=== PATIENT | male | born 1975 | race Caucasian/White ===

== ENCOUNTER → 2020-07-10 11:00 | Outpatient (BNVA) | payer OTHER, SELFPAY | PROVIDERS: Visit Provider Nurse Practitioner Family | DX: Z11.59 Encounter for screening for other viral diseases (principal) | CPT/HCPCS: 87426; 87635 ==

== ENCOUNTER 2020-10-14 21:40 | Emergency (ER) | payer OTHER, SELFPAY ==
[2020-10-14 21:56] VITALS: BP 148/93; PULSE 84; RESP 16; TEMP 36.5; O2SAT 97; BMI 27.3
--- NOTE | 2020-10-14 23:57 | ED_ITS ---
HPI - Headache General: Chief Complaint: Headache Stated Complaint: migraine Time Seen by Provider: 10/14/20 23:41 History of Present Illness: HPI Narrative: Patient is a 44-year-old male comes to the ED with a migraine. Patient says he has a past medical history of migraines and usually takes sumatriptan, but has run out of his sumatriptan and was unable to take it early in start of this migraine. He says the migraine started last Wednesday, October 09. He says it is just like his previous migraines. Said he is taken some Advil at home and his last dose was 800 mg at 10 AM this morning. He has associated nausea and photophobia with his migraine. His headache is located in forehead and also radiates to the back of his head. He rates his migraine currently a 7 out of 10. Denies any neurological symptoms such as numbness tingling to face or extremities, weakness to face or extremities or vision changes. Patient did say that he is new to [place] and would like to get referral to a primary care doctor. Associated symptoms: Reports nausea and photophobia; Deny chest pain, fever(s), rash or vomiting Review of Systems Const: Denies: fever(s), chills or fatigue Eyes: Reports: photophobia; Denies: change in vision or eye discomfort ENMT: Denies: throat pain, odynophagia, nasal discharge or nasal congestion Card: Denies: chest pain, palpitations, edema, swelling of feet/ankles, dyspnea on exertion or orthopnea Resp: Denies: dyspnea, productive cough or non-productive cough GI: Reports: nausea; Denies: abdominal pain, vomiting, diarrhea, constipation or hematochezia : Denies: flank pain, difficulty urinating, dysuria or hematuria Musc: Denies: neck pain, back pain or extremity swelling Skin/Breast: Denies: rash or new lesions Neuro: Reports: headache(s); Denies: numbness in extremities or weakness in extremities Physical Exam Const: COMMON NORMALS: no acute distress, patient oriented x3, healthy appearing and alert GENERAL APPEARANCE: cooperative and comfortable HENMT: COMMON NORMALS: normocephalic HEAD & SCALP: normocephalic MOUTH: Normal oral and palatal mucosa present THROAT: posterior oropharynx normal and uvula midline Eye: COMMON NORMALS: Equal, round and reactive pupils present, EOMs intact bilaterally and conjunctivae normal CONJUNCTIVA: Yes conjunctivae normal PUPIL: Yes Equal, round and reactive pupils present DIRECT OPHTHALMOSCOPY: Yes photophobia Neck/C-Spine: COMMON NORMALS: supple GENERAL: Yes normal visual inspection Resp: COMMON NORMALS: normal respiratory effort, No retractions, No use of accessory muscles and clear to auscultation bilaterally AUSCULTATION: clear to auscultation bilaterally Cardio: COMMON NORMALS: regular rate, regular rhythm, S1 normal heart sound present, S2 normal heart sound present, No gallops present (Cardio), No clicks present (Cardio), No murmurs present (Cardio) and Peripheral pulses 2+ throughout RATE: regular rate RHYTHM: regular rhythm HEART SOUNDS: S1 normal heart sound present and S2 normal heart sound present PERIPHERAL PULSES: Peripheral pulses 2+ throughout GI: COMMON NORMALS: Normal to inspection, nondistended, normoactive bowel sounds present, Soft to palpation, non-tender and no masses PALPATION: Yes Soft to palpation : COMMON NORMALS: Yes no CVA tenderness BLADDER/KIDNEY EXAM: Yes no CVA tenderness Back/Pelvis: COMMON NORMALS: no CVA tenderness Extremity: COMMON NORMALS: normal to inspection Neuro: COMMON NORMALS: patient oriented x3, CN's II-XII intact bilaterally, moves all extremities and no focal motor deficits SENSORIUM/ORIENTATION: Yes alert COORDINATION/BALANCE: [id number] test normal SPEECH: speech normal MOTOR EXAM: 5/5 motor strength present throughout COORDINATION: [id number] test normal Skin: GENERAL SKIN EXAM: dry skin Course Reevaluation(s): Reevaluation #1: Went in to reevaluate patient after he received migraine medications. Patient says his migraine is improved greatly and he is ready to go home and rest. Time: 01:04 Vital Signs: Vital signs: Vital Signs Temperature 97.7 F 10/14/20 21:56 Pulse Rate 84 10/14/20 21:56 Respiratory Rate 16 10/14/20 21:56 Blood Pressure 148/93 10/14/20 21:56 Pulse Oximetry 97 10/14/20 21:56 MDM - Headache MDM Narrative: Medical decision making narrative: Patient is a 44-year-old male comes to the ED with a migraine. He says that this migraine is similar to previous migraines and he ran out of his sumatriptan prescription. Patient is new to [place] would like to get established with a primary care physician and I told him I would place a referral with case management form. Patient appears in no acute distress or pain is neuro exam is normal. He endorses having photophobia and nausea. Patient was given IV fluids, Toradol, Reglan, Benadryl and Decadron while here in the ED and his migraine greatly improved. I placed order with case management for patient to be referred to PCP. Patient was diagnosed with migraine and discharged home with a prescription for sumatriptan. Return to ED precautions given. Told patient case management will be contacting you in the next several days to set up an appoint with PCP. Patient understood agree with plan. Discharge Plan Discharge Patient Disposition: Home Clinical Impression: Migraine Qualifiers: Migraine type: without aura Status migrainosus presence: without status migrainosus Intractability: not intractable Qualified Code(s): G43.009 - Migraine without aura, not intractable, without status migrainosus Condition: Stable Prescriptions: New sumatriptan succinate 100 mg tablet See Rx Instructions .ROUTE .COMPLEX Qty: 10 RF: 0 No Action No Known Home Medications RF: 0 Discharge Orders: Discharge ED (Routine); Ordered 10/15/20 Ordered By: Romain Long Discharge Diet: Regular Discharge Activity: Resume usual activity Patient Instructions: Migraine Headache (ED) Activity Restrictions/Additional Instructions: Follow-up with medical provider as directed. Case management will be contacting you in the next several days to set up an appointment with primary care physician. Sending you home with a prescription for some sumatriptan for you to use for any reoccurring migraines. Take medications as prescribed. Return to the ER or your medical provider if condition worsens. Please read and understand discharge instructions. If any questions, please ask. Coding Level of Care Code ED Bowling Ball Grader And Marker for Micaela Fwd Exam Comprehensive
[2020-10-15] MEDS: ketorolac 30 mg/mL INJ IVP (00:21)
[2020-10-15] MEDS: metoclopramide 5 mg/mL SDV 2 mL 10 MG IVP (00:21)
[2020-10-15] MEDS: diphenhydrAMINE 50 mg/mL SDV 1mL 25 MG IVP (00:22)
[2020-10-15] MEDS: dexamethasone 4 mg/mL INJ 10 MG IVP (00:22)
[2020-10-15] MEDS: sodium chloride 0.9% 500 ML 999 ML IV (00:23)
[2020-10-15 01:13] VITALS: PULSE 78; RESP 16; O2SAT 98
--- NOTE | 2020-10-15 13:50 | DCPLANNER ---
commercial development manager had message to speak with patient about getting established with a primary care physician. commercial development manager spoke with patient he stated that he did want help in getting established with a primary care physician. commercial development manager called [facility], spoke with Maryse, gave clinic patients information. A follow up appointment was scheduled for , October 24, 2020 at 10:[address] Gomez. commercial development manager called patient and gave patient the appointment information.
--- NOTE | 2020-11-29 08:15 | DCPLANNER ---
Patient had a follow up appointment scheduled for 10.24.20 with [facility] to establish care with Dr. Gomez - patient did attend appointment.
== END 2020-10-15 01:14 | disposition home or self-care (01) ==
PROVIDERS: Emergency Provider Physician Assistant
DX: G43.009 Migraine without aura, not intractable, without status migrainosus (principal)
CPT/HCPCS: 96374; 96375; 99283; J1100; J1200; J1885; J2765; J7040

== ENCOUNTER 2020-11-08 17:10 | Emergency (ER) | payer OTHER, SELFPAY ==
[2020-11-08 17:12] VITALS: BP 138/89; PULSE 77; RESP 18; TEMP 36.4; O2SAT 97; BMI 28.0
[2020-11-08 17:19] VITALS: PULSE 78; O2SAT 96
--- NOTE | 2020-11-08 17:19 | XRR_ITS ---
PROCEDURE INFORMATION: Exam: XR Right Hand Exam date and time: 11/08/2020 5:38 PM Age: 44 years old Clinical indication: Injury or trauma; Other: Injury - fourth digit; Swelling (edema); Injury date: 11/08/2020; Patient HX: Pain - right hand - 4th digit; Additional info: Pain index finger TECHNIQUE: Imaging protocol: XR Right hand. Views: 3 or more views. COMPARISON: No relevant prior studies available. FINDINGS: Nondisplaced oblique fracture of the 4th distal phalanx is noted. No joint dislocation. Mild soft tissue swelling is seen at the lateral aspect of the 3rd digit PIP joint. XR/XR hand RT min 3V* [id number] IMPRESSION: Nondisplaced 4th distal phalanx fracture.
--- NOTE | 2020-11-08 17:36 | ED_ITS ---
HPI - Extremity Problem General: Chief complaint: Extremity Injury, Upper Stated complaint: R 3RD FINGER INJURY Time Seen by Provider: 11/08/20 17:19 History of Present Illness: HPI Narrative: Patient was climbing to his truck and grabbed the handlebar inside and pulled his right ring finger now has pain at the tip. Complaint: extremity pain Onset (ago): hour(s) Pain Consistency: intermittent Location: right and upper extremity Severity scale (1-10): 2 Quality: stabbing (When squeezed) Radiation: none Relieving factors: immobilization Exacerbating factors: other (Squeezing the tip) Associated symptoms: Reports no associated symptoms; Deny fever(s) Review of Systems Const: Denies: fever(s) or chills Musc: Reports: extremity pain (Right ring finger tip and joint) Psych: Denies: anxiety PFSH ED PFSH: Medical History (Updated 10/29/20 @ 07:34 by Carlita Gomez DO) Eczema Elevated blood pressure reading without diagnosis of hypertension GERD (gastroesophageal reflux disease) Hemochromatosis Hemorrhoids IBS (irritable bowel syndrome) Lyme disease Migraine headache Surgical History (Updated 10/25/20 @ 09:08 by Carlita Gomez DO) History of appendectomy History of intestinal surgery Family History Mother Cancer ovarian Grandmother Cancer colon Grandfather Cancer bone Father Cancer lung Other Tremor Social History Smoking and tobacco status: current every day smoker cigarettes Packs smoked per day: 0.5 Alcohol intake: never Physical Exam Const: COMMON NORMALS: no acute distress Extremity: RIGHT UPPER EXTREMITY: Yes hand & digits (Right index finger with no swelling redness or erythema tender DIP) Right hand and digits: Yes ROM exam (Range of motion is good) Psych: COMMON NORMALS: mental status grossly normal Course Vital Signs: Vital signs: Vital Signs Temperature 97.5 F L 11/08/20 17:12 Pulse Rate 78 11/08/20 17:19 Respiratory Rate 18 11/08/20 17:12 Blood Pressure 138/89 11/08/20 17:12 Pulse Oximetry 96 11/08/20 17:19 Discharge Plan Discharge Prescriptions: No Action pantoprazole 40 mg tablet,delayed release (DR/EC) 40 mg PO DAILY Qty: 30 RF: 0 triamcinolone acetonide 0.1 % cream 1 applic topical DAILY PRN (Reason: for itching) Qty: 453.6 RF: 0 sumatriptan succinate 100 mg tablet See Rx Instructions .ROUTE .COMPLEX Qty: 10 RF: 0 Coding Level of Care Code ED Pinking Sewing Machine Operator for Micaela Garza
== END 2020-11-08 18:17 | disposition home or self-care (01) ==
PROVIDERS: Emergency Provider Nurse Practitioner Family; PCP Family Medicine
DX: S69.91XA Unspecified injury of right wrist, hand and finger(s), initial encounter (principal); X50.9XXA Other and unspecified overexertion or strenuous movements or postures, initial encounter; F17.210 Nicotine dependence, cigarettes, uncomplicated
CPT/HCPCS: 73130; 99282

== ENCOUNTER → 2020-11-26 10:20 | Outpatient (BNVA) | payer OTHER, SELFPAY | PROVIDERS: PCP Family Medicine; Visit Provider Family Medicine | DX: Z13.6 Encounter for screening for cardiovascular disorders (principal); K58.9 Irritable bowel syndrome, unspecified; L84 Corns and callosities; K21.9 Gastro-esophageal reflux disease without esophagitis; Z79.899 Other long term (current) drug therapy | CPT/HCPCS: 80053; 80061; 85025 ==

== ENCOUNTER 2020-12-25 18:00 | Emergency (ER) | payer OTHER, SELFPAY ==
[2020-12-25 18:58] VITALS: BP 127/77; PULSE 66; RESP 16; TEMP 36.8; O2SAT 96; BMI 28.0
--- NOTE | 2020-12-25 19:53 | ED_ITS ---
HPI - Headache General: Chief Complaint: Headache Stated Complaint: Severe Headache, N/V Time Seen by Provider: 12/25/20 19:41 Source: patient Mode of arrival: ambulatory Limitations: no limitations History of Present Illness: HPI Narrative: 45-year-old male states he has a long history of migraine states that he had a migraine that started this morning at 9 AM. States it began gradually is worsened throughout the day. States it is currently a 7 out of 10 and is causing vomiting as well. He has photophobia phonophobia. Denies any recent injuries. Denies any fevers. States this is just like his previous migraines. Associated symptoms: Deny chest pain, fever(s), nausea, rash or vomiting Review of Systems Const: Denies: fever(s), chills, body aches or change in appetite Eyes: Denies: blurry vision or eye discomfort ENMT: Denies: throat pain or dental pain Card: Denies: chest pain Resp: Denies: dyspnea GI: Denies: abdominal pain, nausea, vomiting or diarrhea : Denies: dysuria Musc: Denies: neck pain or back pain Skin/Breast: Denies: rash Neuro: Reports: headache(s) Psych: Denies: depression Fernando/Lymph: Denies: easy bruising All/Imm: Denies: urticaria PFSH ED PFSH: Medical History (Updated 12/25/20 @ 21:01 by Major Chew MD) Eczema Elevated blood pressure reading without diagnosis of hypertension GERD (gastroesophageal reflux disease) Hemochromatosis Hemorrhoids IBS (irritable bowel syndrome) Lyme disease Migraine headache Surgical History History of appendectomy History of intestinal surgery Family History Mother Cancer ovarian Grandmother Cancer colon Grandfather Cancer bone Father Cancer lung Other Tremor Social History Smoking and tobacco status: current every day smoker cigarettes Packs smoked per day: 0.5 Alcohol intake: never Physical Exam Const: COMMON NORMALS: no acute distress, patient oriented x3 and healthy appearing HENMT: COMMON NORMALS: normocephalic and atraumatic HEAD & SCALP: normocephalic and atraumatic Eye: COMMON NORMALS: Equal, round and reactive pupils present and EOMs intact bilaterally PUPIL: Yes Equal, round and reactive pupils present Neck/C-Spine: COMMON NORMALS: full ROM and supple Chest: COMMONS NORMALS: normal inspection of the chest and normal palpation of entire chest wall Resp: COMMON NORMALS: normal respiratory effort, No retractions, No use of accessory muscles and clear to auscultation bilaterally AUSCULTATION: clear to auscultation bilaterally Cardio: COMMON NORMALS: regular rate, regular rhythm and No murmurs present (Cardio) RATE: regular rate RHYTHM: regular rhythm GI: COMMON NORMALS: Normal to inspection, nondistended, normoactive bowel sounds present, Soft to palpation, non-tender and no masses PALPATION: Yes Soft to palpation Extremity: COMMON NORMALS: normal to inspection and full ROM Neuro: COMMON NORMALS: patient oriented x3, moves all extremities and no focal motor deficits Psych: COMMON NORMALS: mental status grossly normal, Normal thought process present and cooperative THOUGHT PROCESS: Normal thought process present Skin: COMMON NORMALS: no rashes or lesions noted and no wounds GENERAL SKIN EXAM: no rashes or lesions noted Course Vital Signs: Vital signs: Vital Signs Temperature 98.2 F 12/25/20 18:58 Pulse Rate 70 12/25/20 20:49 Respiratory Rate 18 12/25/20 20:49 Blood Pressure 134/87 12/25/20 20:49 Pulse Oximetry 99 12/25/20 20:49 MDM - Headache MDM Narrative: Medical decision making narrative: Patient presents here with a likely migraine headache. He is well-appearing here and feels much improved after Reglan and Benadryl. He has no signs of subarachnoid hemorrhage or meningitis. He is stable for discharge is to follow-up his PCP and return if worsening. Discharge Plan Discharge Patient Disposition: Home Clinical Impression: Migraine Qualifiers: Migraine type: unspecified Status migrainosus presence: without status migrainosus Intractability: not intractable Qualified Code(s): G43.909 - Migraine, unspecified, not intractable, without status migrainosus Condition: Stable Prescriptions: No Action dicyclomine 10 mg capsule 10 mg PO QID PRN (Reason: cramping) Qty: 120 RF: 0 albuterol sulfate [ProAir HFA] 90 mcg/actuation HFA aerosol inhaler 2 puff inhalation QID PRN (Reason: shortness of breath or wheezing) Qty: 8.5 RF: 0 triamcinolone acetonide 0.1 % cream 1 applic topical DAILY PRN (Reason: for itching) Qty: 453.6 RF: 0 pantoprazole 40 mg tablet,delayed release (DR/EC) 40 mg PO DAILY Qty: 90 RF: 0 sumatriptan succinate 100 mg tablet See Rx Instructions .ROUTE .COMPLEX Qty: 10 RF: 0 Discharge Orders: Discharge ED (Routine); Ordered 12/25/20 Ordered By: Major Chew Referrals: Carlita Gomez DO [Primary Care Provider] - 1-3 days Discharge Diet: Advance as tolerated Discharge Activity: Resume usual activity Patient Instructions: Migraine Headache (ED) Coding Level of Care Code ED Laser Set Up Operator for Micaela Fwd Exam Comprehensive
[2020-12-25] MEDS: diphenhydrAMINE 50 mg/mL SDV 1mL IVP (20:32)
[2020-12-25] MEDS: ketorolac 30 mg/mL INJ 15 MG IVP (20:35)
[2020-12-25] MEDS: metoclopramide 5 mg/mL SDV 2 mL 10 MG IVP (20:37)
[2020-12-25 20:49] VITALS: BP 134/87; PULSE 70; RESP 18; O2SAT 99
--- NOTE | 2020-12-25 20:49 | PC.NURSE ---
Lights off for comfort; reports feeling a little better already after medication administration.
[2020-12-25 21:31] VITALS: BP 129/79; PULSE 68; RESP 16; O2SAT 99
== END 2020-12-25 21:32 | disposition home or self-care (01) ==
PROVIDERS: Emergency Provider Emergency Medicine; PCP Family Medicine
DX: G43.909 Migraine, unspecified, not intractable, without status migrainosus (principal); F17.210 Nicotine dependence, cigarettes, uncomplicated
CPT/HCPCS: 96374; 96375; 99283; J1200; J1885; J2765

== ENCOUNTER 2023-05-18 13:59 | Emergency (ER) | payer BC, MEDICAID, SELFPAY ==
[2023-05-18 14:51] VITALS: BP 158/105; PULSE 90; RESP 17; TEMP 36.7; O2SAT 97; BMI 28.4
--- NOTE | 2023-05-18 17:02 | ED_ITS ---
HPI - Head Injury General: Chief complaint: Head Injury Stated complaint: knocked teeth out Time Seen by Provider: 05/18/23 17:01 History of Present Illness: 47-year-old male patient comes in today with injury to the upper lip and teeth. Patient was pulling on a piece of wood that got stuck under his tire when it came loose causing it to strike him in the mouth. Patient ended up knocking out his central right incisor and secondary incisor on the right. Patient has some laceration to the inner lip. Bleeding is controlled. Patient denies any loss of consciousness or hitting his head when he hit the ground. Patient answers questions appropriately. Patient has a history of depression. Incident occurred about 1:00 this afternoon. Patient did bring in the secondary incisor but could not find his central incisor. Associated symptoms: Deny neck pain Review of Systems General: Reports: 10 or more systems reviewed and unremarkable except in HPI and below ENMT: Reports: mouth pain, swelling of lips/tongue and dental pain Card: Denies: chest pain Resp: Denies: dyspnea Musc: Denies: neck pain or back pain Skin/Breast: Denies: rash PFSH ED PFSH: Medical History Eczema Elevated blood pressure reading without diagnosis of hypertension GERD (gastroesophageal reflux disease) Hemochromatosis Hemorrhoids IBS (irritable bowel syndrome) Lyme disease Migraine headache Surgical History History of appendectomy History of intestinal surgery Family History Mother Cancer ovarian Grandmother Cancer colon Grandfather Cancer bone Father Cancer lung Other Tremor Social History Smoking and tobacco/nicotine status: current every day tobacco/nicotine user cigarettes Packs smoked per day: 0.5 Alcohol intake: never Substance/Drug Use: never Physical Exam Const: COMMON NORMALS: alert HENMT: COMMON NORMALS: normocephalic, TM's normal bilaterally and Normal external nose present HEAD & SCALP: normocephalic FACE & SINUS: normal facial exam NOSE: Normal external nose present TYMPANIC MEMBRANE: TM's normal bilaterally MOUTH: moist mucous membranes abnormal (Contusion and irregular laceration upper inner lip) TEETH & GINGIVA: Yes other (Loss of central incisor and lateral right incisor.) TEETH & GINGIVA IMAGES: 1. Loss of tooth 2. Loss of tooth THROAT: posterior oropharynx normal Neck/C-Spine: COMMON NORMALS: full ROM Resp: COMMON NORMALS: normal respiratory effort Cardio: COMMON NORMALS: regular rate and regular rhythm RATE: regular rate RHYTHM: regular rhythm : COMMON NORMALS: Yes no CVA tenderness BLADDER/KIDNEY EXAM: Yes no CVA tenderness Back/Pelvis: COMMON NORMALS: no CVA tenderness Extremity: COMMON NORMALS: full ROM Neuro: SENSORIUM/ORIENTATION: Yes alert Skin: COMMON NORMALS: turgor normal GENERAL SKIN EXAM: turgor normal Course Vital Signs: Vital signs: Vital Signs Temperature 98.1 F 05/18/23 14:51 Pulse Rate 90 05/18/23 14:51 Respiratory Rate 17 05/18/23 14:51 Blood Pressure 158/105 05/18/23 14:51 Pulse Oximetry 97 05/18/23 14:51 Oxygen Delivery Me thod Room Air 05/18/23 14:51 MDM - Head Injury Medcial Decision Making 47-year-old male patient comes in today for injury to the teeth of his right central and lateral incisor. Patient had hit the teeth with a stick that he was trying to pull out from under his truck knocking the 2 teeth out of his mouth. Patient was not able to find the central incisor but brought in the lateral inci sor. It had been 4 hours since the loss of tooth. Patient is presently on antibiotics for an infected wound to his scalp. Patient appears nontoxic. Differential diagnosis includes avulsed tooth, dental fracture, facial laceration, mouth laceration. Due to length of time of tooth being avulsed I did not recommend replacement. Recommend follow-up with dentist for further evaluation and treatment regarding the central incisor. Patient should maintain antibiotics and good oral care with soft diet. Patient reported understanding of care plan and need for follow-up for worsening symptoms such as fever or facial swelling. No radiology studies performed this visit Discharge Plan Discharge Patient Disposition: Home Clinical Impression: Avulsion of tooth due to trauma Qualifiers: Encounter type: initial encounter Qualified Code(s): S03.2XXA - Dislocation of tooth, initial encounter Condition: Stable Prescriptions: New hydrocodone-acetaminophen 5-325 mg tablet 1 tab PO Q6H PRN (Reason: pain (scale score 7-10)) Qty: 10 0RF No Action escitalopram oxalate [Lexapro] 5 mg tablet 5 mg PO DAILY Qty: 30 0RF Viberzi 100 mg tablet 100 mg PO BID Qty: 60 0RF Rx Instructions: must administer with a meal/food mupirocin 2 % ointment 1 applic topical BID Qty: 22 0RF cephalexin 500 mg capsule 500 mg PO TID Qty: 21 0RF Discharge Orders: Discharge ED (Routine); Ordered 05/18/23 Ordered By: Poncho Payne Referrals: Carlita Gomez DO [Primary Care Provider] - Discharge Diet: Soft Mechanical Discharge Activity: Increase activity as tolerated Patient Instructions: Acute Dental Trauma (ED) Activity Restrictions/Additional Instructions: Drink plenty of water. Continue cephalexin antibiotic as prescribed. Follow-up with dentist for definitive care. Eat a soft diet until wounds of healed and teeth have stabilized. Avoid the manipulation of loose teeth. Rinse mouth thoroughly with warm water after eating. Continue to brush other teeth twice daily. Return to ER for high fever greater than 100.4, increased redness and swelling of the face, or new concerns. Coding Level of Care Code ED Environmental Services Technician for Micaela Garza
[2023-05-18] MEDS: HYDROcodone-acetaminophen 5-325 mg Tablet 1 TAB PO (17:22)
== END 2023-05-18 17:29 | disposition home or self-care (01) ==
PROVIDERS: Emergency Provider Nurse Practitioner Family; PCP Family Medicine
DX: S03.2XXA Dislocation of tooth, initial encounter (principal); F17.210 Nicotine dependence, cigarettes, uncomplicated; W20.8XXA Other cause of strike by thrown, projected or falling object, initial encounter
CPT/HCPCS: 99283

== ENCOUNTER 2024-03-07 19:18 | Emergency (ER) | payer BC, MEDICAID, SELFPAY ==
[2024-03-07 19:20] VITALS: BP 169/103; PULSE 92; RESP 14; TEMP 36.7; O2SAT 95
--- NOTE | 2024-03-07 20:15 | ED_ITS ---
HPI - Wound/Laceration General: Chief Complaint: Wound/Laceration Stated Complaint: Insect Bite on Left Elbow Time Seen by Provider: 03/07/24 19:27 Source: patient Mode of arrival: ambulatory Limitations: no limitations History of Present Illness: Patient is a 48-year-old male presenting to the emergency department complaining of lesion to left elbow onset last few days. Believes it was a spider bite, states the lesion has significantly gotten more swollen and painful, and has been somewhat draining purulent material. He has been cleaning it with Hibiclens and applying bacitracin, states it has only gotten worse. He is denying any fever, nausea vomiting, or other systemic signs of illness at this time. His vitals unremarkable on arrival. Onset (ago): day(s) Extremity Location: Left: elbow Associated symptoms: Denies chills, fever(s), nausea or vomiting Treatments prior to arrival: other (Hibiclens/mupirocin) Related Data Previous Rx's Medication Instructions Recorded eluxadoline 100 mg tablet (Viberzi) 100 mg PO BID #60 tabs 12/10/22 mupirocin 2 % topical ointment 1 applic topical BID #22 grams 05/16/23 amoxicillin 875 mg-potassium 1 tab PO BID 7 days #14 tabs 12/26/23 clavulanate 125 mg tablet amoxicillin 875 mg-potassium 1 tab PO BID 10 days #20 tabs 01/30/24 clavulanate 125 mg tablet ibuprofen 800 mg tablet 800 mg PO Q8H PRN pain #30 tabs 01/30/24 doxycycline hyclate 100 mg tablet 100 mg PO BID 10 days #20 tabs 03/07/24 Allergies Allergy/AdvReac Type Severity Reaction Status Date / Time No Known Allergies Allergy Verified 03/07/24 19:24 Review of Systems General: Reports: 10 or more systems reviewed and unremarkable except in HPI and below Const: Denies: fever(s) or chills Card: Denies: chest pain Resp: Denies: dyspnea GI: Denies: abdominal pain, nausea, vomiting or diarrhea Musc: Denies: extremity pain or joint pain Skin/Breast: Reports: erythema, skin pain, skin tenderness and new lesions; Denies: rash Neuro: Denies: headache(s) PFS ED PFSH: Medical History Eczema Lyme disease IBS (irritable bowel syndrome) Elevated blood pressure reading without diagnosis of hypertension Hemorrhoids Hemochromatosis Migraine headache GERD (gastroesophageal reflux disease) Surgical History History of intestinal surgery History of appendectomy Family History Mother Cancer ovarian Grandmother Cancer colon Grandfather Cancer bone Father Cancer lung Other Tremor Social History Smoking and tobacco/nicotine status: never used tobacco/nicotine Alcohol intake: never Substance/Drug Use: never Physical Exam 2 Const: COMMON NORMALS: no acute distress, average body habitus, patient oriented x3, no limitations, healthy appearing, alert and well nourished HENMT: COMMON NORMALS: normocephalic and atraumatic HEAD & SCALP: normocephalic and atraumatic Neck/C-Spine: COMMON NORMALS: full ROM, no lymphadenopathy, supple and no meningeal signs Resp: COMMON NORMALS: normal respiratory effort, No use of accessory muscles and clear to auscultation bilaterally AUSCULTATION: clear to auscultation bilaterally Cardio: COMMON NORMALS: regular rate and regular rhythm RATE: regular rate RHYTHM: regular rhythm Extremity: COMMON NORMALS: full ROM and capillary refill normal Neuro: COMMON NORMALS: patient oriented x3 SENSORIUM/ORIENTATION: Yes alert MENINGEAL SIGNS: Yes no meningeal signs Skin: COMMON NORMALS: no wounds and turgor normal NARRATIVE SKIN EXAM: There is an indurated, somewhat fluctuant lesion to lateral aspect of patient's proximal left forearm. Some drainage noted at this time and upon probing it there is very minimal drainage. GENERAL SKIN EXAM: turgor normal Procedures Abscess I/D Site: upper extremity Side (if applicable): left Local Anesthetic: lidocaine 2% and with epi Amount of anesthesia used (mL): 2 Technique: needle aspiration and incised with #11 blade Amount of fluid expressed (mL): 1 Irrigation: Yes Packing used?: none Complications: pain Course Vital Signs: Vital signs: Vital Signs Temperature 98.1 F 03/07/24 19:20 Pulse Rate 92 03/07/24 20:21 Respiratory Rate 14 03/07/24 19:20 Blood Pressure 169/103 03/07/24 20:21 Pulse Oximetry 95 03/07/24 20:21 Oxygen Delivery Me thod Room Air 03/07/24 20:20 MDM - Wound/Laceration Medical Decision Making Patient presents with what appeared to be a subcutaneous abscess, unknown what could have caused it however it favor spider bite due to patient's reported history. He did arrive with normal vitals noted to be afebrile and physical examination not reveal any systemic or concerning signs of illness. The lesion was somewhat draining, and this was incised with an 11 blade after needle incision attempted and did not alvares any drainage. There was very minimal liquid drainage, however purulent material was present and removed with forceps. This did present as an abscess and it was flushed out, too superficial for packing at this time and we will treat with oral and topical antibiotics. He is instructed to return with any new or worsening signs of infection and to follow- up with primary care for routine evaluation in the next few days to make sure it is healing well. Proper wound care discussed he will be discharged at this time. No radiology studies performed this visit Discharge Plan Discharge Patient Disposition: Home Clinical Impression: Abscess Condition: Stable Prescriptions: New doxycycline hyclate 100 mg tablet 100 mg PO BID 10 Days Qty: 20 0RF No Action Viberzi 100 mg tablet 100 mg PO BID Qty: 60 0RF Rx Instructions: must administer with a meal/food mupirocin 2 % ointment 1 applic topical BID Qty: 22 0RF amoxicillin-pot clavulanate 875-125 mg tablet 1 tab PO BID 7 Days Qty: 14 0RF amoxicillin-pot clavulanate 875-125 mg tablet 1 tab PO BID 10 Days Qty: 20 0RF ibuprofen 800 mg tablet 800 mg PO Q8H PRN (Reason: pain) Qty: 30 0RF Discharge Orders: Discharge ED (Routine); Ordered 03/07/24 Ordered By: Marlon Watson Referrals: Carlita Gomez DO [Primary Care Provider] - Discharge Diet: Usual diet Discharge Activity: Increase activity as tolerated Patient Instructions: Abscess (ED) Activity Restrictions/Additional Instructions: Doxycycline as prescribed. Bacitracin topically. Keep wound dry and dressed appropriately and follow-up with your primary care provider in the next few days for reevaluation. Please return with any new or worsening signs of infection. Coding Level of Care Code ED Director Airport Operations for Micaela Garza
[2024-03-07 20:20] VITALS: BP 169/103; PULSE 92; O2SAT 95
[2024-03-07 20:21] VITALS: BP 169/103; PULSE 92; O2SAT 95
[2024-03-07] MEDS: doxycycline 100 mg Tablet PO (20:22)
== END 2024-03-07 20:22 | disposition home or self-care (01) ==
PROVIDERS: Emergency Provider Physician Assistant; PCP Family Medicine
DX: L02.414 Cutaneous abscess of left upper limb (principal)
CPT/HCPCS: 99283

== ENCOUNTER 2025-06-03 22:19 | Emergency (ER) | payer BC, MEDICAID, SELFPAY ==
[2025-06-03 22:20] VITALS: BP 160/70; PULSE 89; RESP 22; TEMP 36.4; O2SAT 98
--- OUTSIDE RECORDS SUMMARY | 2025-06-03 22:29 | XMS_ITS | Encounter Summary ---
Author Organization [facility] Address [address] [place] [address] Care Team Providers Care Barrel Roller Operator Name Role Phone Ralf Chaidez MD Primary Care Provider [phone] Encounter Details Date Type Department Care Team (Latest Contact Info) Description 06/22/2000 Outpatient Historical [facility] Zane Gaona NO ADDRESS ON FILE Migraine, unspecified, without mention of intractable migraine without mention of status migrainosus (Primary Dx); Pityriasis rosea Social History Tobacco Use Types Packs/Day Years Used Date Smoking Tobacco: Never Assessed Sex and Gender Information Value Date Recorded Sex Assigned at Not on file Legal 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
--- OUTSIDE RECORDS SUMMARY | 2025-06-03 22:29 | XMS_ITS | Encounter Summary ---
Author Organization [facility] Address [address] [place] [address] Care Team Providers Care Quality Assurance Calibrator Name Role Phone Ralf Chaidez MD Primary Care Provider [phone] Encounter Details Date Type Department Care Team (Latest Contact Info) Description 10/16/1998 Outpatient Historical [facility] Say Gonsales Jr., MD [address] [place] [phone] Routine medical exam (Primary Dx) Social History Tobacco Use Types Packs/Day Years Used Date Smoking Tobacco: Never Assessed Sex and Gender Information Value Date Recorded Sex Assigned at Not on file 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
--- OUTSIDE RECORDS SUMMARY | 2025-06-03 22:29 | XMS_ITS | Encounter Summary ---
Author Organization [facility] Address [address] [facility] [place] [address] Care Team Providers Care Registered Respiratory Technician Name Role Phone Ralf Chaidez MD Primary Care Provider [phone] Encounter Details Date Type Department Care Team (Late st Contact Info) Description 11/12/2005 Outpatient Historical [facility] [address] [place] [place] [address] Romain Cherry, DO [address] [id number] Unspecified Local Infection of Skin and Subcutaneous Tissue (Primary Dx); Lymphangitis Social History Tobacco Use Types Packs/Day Years Used Date Smoking Tobacco: Never Assessed Sex and Gender Information Value Date Recorded Sex Assigned at Not on file 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
--- OUTSIDE RECORDS SUMMARY | 2025-06-03 22:30 | XMS_ITS | Encounter Summary ---
Author Organization [facility] Address [address] [place] [address] Care Team Providers Care Entry Level Project Engineer Name Role Phone Ralf Chaidez MD Primary Care Provider [phone] Encounter Details Date Type Department Care Team (Latest Contact Info) Description 01/18/2006 Outpatient Historical [address] [place] [address] Na Pate MD [address] [place] [phone] Unspecified Disorder of Intestine (Primary Dx); Hyposmolality; Personal History of Colonic Polyps; Dysthymic Disorder Social History Tobacco Use Types Packs/Day Years Used Date Smoking Tobacco: Never Assessed Sex and Gender Information Value Date Recorded Sex Assigned at Not on file 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
--- OUTSIDE RECORDS SUMMARY | 2025-06-03 22:30 | XMS_ITS | Encounter Summary ---
Author Organization [facility] Address [address] [place] [address] Care Team Providers Care Senior Qualitative Researcher Name Role Phone Ralf Chaidez MD Primary Care Provider [phone] Encounter Details Date Type Department Care Team (Latest Contact Info) Description 02/08/2006 Outpatient Historical [address] [place] [address] Na Pate MD [address] [place] [phone] Irritable Bowel Syndrome (Primary Dx); Headache; Decreased Libido; Dysthymic Disorder Social History Tobacco Use Types Packs/Day Years Used Date Smoking Tobacco: Never Assessed Sex and Gender Information Value Date Recorded Sex Assigned at Not on file 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
--- OUTSIDE RECORDS SUMMARY | 2025-06-03 22:30 | XMS_ITS | Clinical Summary ---
Author Organization [facility] Address [address] [place] [address] Care Team Providers Care Bridge Expert Name Role Phone Unavailable Primary Care Provider Unavailabl e Allergies No known active allergies Medications ADDERALL 20 mg Oral Tab Take 20 mg by mouth 2 times daily. Active RELPAX 40 mg Oral Tab Take 1 Tab by mouth 1 time daily as needed.Migrain e. Maximum 2 tabs in 24 hours Active sumatriptan (IMITREX) 100 mg Oral tablet Take 1 Tab by mouth 1 time daily as needed for Migraine. May repeat dose in 2 hours if headache persist. 9 Tab 5 0 Active neomycin-polymyxin -dexamethasone (MAXITROL) 3.5-10,000-0.1 mg/mL-unit/mL-% suspensionIndicati ons:Left conjunctivitis Administer 1 Drop in right eye every 4 hours. 5 mL 0 4 Active emtricitabine-teno fovir (TRUVADA) 200-300 mg Tablet TAKE ONE TABLET BY MOUTH EVERY DAY. 30 Tablet 1 6 Active Active Problems Problem Noted Date Diagnosed Date Left conjunctivitis 03/10/2014 Acute URI 03/10/2014 Family History Medical History Relation Name Comments Healthy Brother Depression Father Respiratory Disease Father Cancer Maternal Grandfather Melanoma Maternal Grandfather Hypertension Maternal Grandmother Depression Mother Healthy Mother Heart Disease Paternal Grandfather Hypertension Paternal Grandfather Kidney Disease Paternal Grandfather Colon Cancer Paternal Grandmother Relation Name Status Comments Brother Alive Father Alive Maternal Grandfather Maternal Grandmother Alive Mother Alive Paternal Grandfather Paternal Grandmother Social History Tobacco Use Types Packs/Day Years Used Date Smoking Tobacco: Every Day Comments:social Alcohol Use Standard Drinks/Week Comments Yes 0 (1 standard drink = 0.6 oz pur e alcohol) rare Sex and Gender Information Value Date Recorded Sex Assigned at Not on file Legal 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 Gender Identity Not on file Sexual Orientation Not on file Last Filed Vital Signs Vital Sign Reading Time Taken Comments Blood Pressure 122/96 05/18/2014 1:26 PM WATER POLLUTION CONTROL INSPECTOR Pulse 68 05/18/2014 1:26 PM WATER POLLUTION CONTROL INSPECTOR Temperature 37 C (98.6 F) 05/18/2014 1:26 PM WATER POLLUTION CONTROL INSPECTOR Respiratory Rate 16 05/18/2014 1:26 PM WATER POLLUTION CONTROL INSPECTOR Oxygen Saturation 98% 03/10/2014 5:08 PM CDT Inhaled Oxygen Concentration - - Weight 78 kg (172 lb) 05/18/2014 1:26 PM WATER POLLUTION CONTROL INSPECTOR Height 175.3 cm (5' 9 ) 05/18/2014 1:26 PM WATER POLLUTION CONTROL INSPECTOR Body Mass Index 25.4 05/18/2014 1:26 PM WATER POLLUTION CONTROL INSPECTOR Plan of Treatment Health Maintenance Due Date Last Done Comments DTAP/TDAP/TD VACCINES (1 - Tdap) 1996 HEPATITIS B VACCINES (1 of 3 - 19+ 3-dose series) 07/1996 COLORECTAL SCREENING 2022 Colorectal Cancer Screening 2022 FIT-DNA Q 3 years 2022 FIT/FOBT Q 1 year 2022 Flex Sig/CT Colonography Q 5 years 2022 INFLUENZA VACCINE (#1) 2025 [facility]
--- OUTSIDE RECORDS SUMMARY | 2025-06-03 22:30 | XMS_ITS | Encounter Summary ---
Author Organization [facility] Address [address] [place] [address] Care Team Providers Care Make Ready Worker Name Role Phone Ralf Chaidez MD Primary Care Provider [phone] Encounter Details Date Type Department Care Team (Latest Contact Info) Description 12/29/2005 Outpatient Historical [address] [place] [address] Na Pate MD [address] [place] [phone] Abdominal Pain, Unspecified Site (Primary Dx); Diarrhea; Unspecified Migraine without Mention of Intractable Migraine; Unspecified Acute Reaction to Stress Social History Tobacco Use Types Packs/Day Years Used Date Smoking Tobacco: Never Assessed Sex and Gender Information Value Date Recorded Sex Assigned at Not on file Legal 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
[2025-06-03 23:46] LABS: Hematocrit 40.4 % (37-53); Hemoglobin 14.10 g/dL (11.27-16.99); Mean Corpuscular HGB Conc 34.9 g/dL (30-55); Mean Corpuscular Hemoglobin 31.8 pg (27-33); Mean Corpuscular Volume 91.0 fl (82-101); Nucleated Red Blood Cells % 0 %; Platelet Count 271 10^3/cmm (157-399); Red Blood Count 4.44 10^6/uL (3.85-5.65); White Blood Count 9.96 10^3/uL (3.29-11.43)
[2025-06-04] VITALS (9 sets, daily range): BP systolic 119–164; BP diastolic 56–80; PULSE 64–81; RESP 15–22; O2SAT 90–98
[2025-06-04 00:12] LABS: Troponin(5th) Baseline 12 ng/L (0-15)
[2025-06-04 00:19] LABS: Alanine Aminotransferase 22 U/L (0-41); Albumin Level 4.7 g/dL (3.5-5.2); Alkaline Phosphatase 96 U/L (40-130); Anion Gap 14.8 (5-19); Aspartate Amino Transferase 20 U/L (0-40); Blood Urea Nitrogen 16 mg/dL (6-20); Calcium 9.8 mg/dL (8.5-10.5); Carbon Dioxide 26 mmol/L (22-29); Chloride 103 mmol/L (98-107); Globulin 2.2 g/dL (1.3-4.6); Glucose 90 mg/dL (65-115); NT Pro B Type Natriuretic Pept 56 pg/mL (0-125); Osmolality Calculated 291 mOsm/kg (285-295); Potassium 3.8 mmol/L (3.5-5.1); Sodium 140 mmol/L (136-145); Total Protein 6.9 g/dL (6.6-8.7)
--- NOTE | 2025-06-04 00:35 | ED_ITS ---
HPI - Chest Pain 2 General: Chief Complaint: Chest Pain Stated Complaint: Possible Heart Attack Time Seen by Provider: 06/04/25 00:03 History of Present Illness: Patient is a 49-year-old male who presents with acute onset of chest and back pain that began suddenly at 7:00 PM today while standing still watching television. The patient describes the pain as being located in the central chest area with radiation to the low back. He characterizes the pain as 'pulsating' at times with intermittent sharp quality. The patient states that applying pressure to the area helps alleviate some discomfort. He likens the initial sensation to a 'gong with waves going through it.' The pain reportedly 'catches his breath' at times. The patient denies any trauma, fever, vomiting, or nausea, though reports being thirsty. He mentions using some unusual muscles earlier in the day while attempting to fasten a low-profile tire, but notes this occurred approximately 4 hours before pain onset and did not cause discomfort at the time. Related Data Previous Rx's ?Medication ?Instructions ?Recorded eluxadoline 100 mg tablet (Viberzi) 100 mg PO BID #60 tabs 12/10/22 ibuprofen 800 mg tablet 800 mg PO Q8H PRN pain #30 t abs 01/30/24 moxifloxacin 0.5 % eye drops 1 drp ophthalmic (eye) TI D 7 days 06/04/24 (Vigamox) #3 mL Allergies Allergy/AdvReac Type Severity Reaction Status Date / Time No Known Allergies Allergy Verified 06/04/24 18:35 PFSH ED 2 PFSH: Medical History Eczema Lyme disease IBS (irritable bowel syndrome) Elevated blood pressure reading without diagnosis of hypertension Hemorrhoids Hemochromatosis Migraine headache GERD (gastroesophageal reflux disease) Surgical History History of intestinal surgery History of appendectomy Family History Mother Cancer ovarian Grandmother Cancer colon Grandfather Cancer bone Father Cancer lung Other Tremor Social History Smoking and tobacco/nicotine status: never used tobacco/nicotine Alcohol intake: never Substance/Drug Use: never Physical Exam 2 Const: GENERAL APPEARANCE: cooperative and ill appearing (Mildly); not frail appearing HENMT: COMMON NORMALS: normocephalic, atraumatic and Normal external nose present HEAD & SCALP: normocephalic and atraumatic FACE & SINUS: normal facial exam and face symmetric NOSE: Normal external nose present Eye: COMMON NORMALS: Equal, round and reactive pupils present and EOMs intact bilaterally PUPIL: Yes Equal, round and reactive pupils present Neck/C-Spine: GENERAL: Yes trachea midline Chest: CHEST: Yes Symmetrical chest wall rise Resp: COMMON NORMALS: normal respiratory effort, No retractions, No use of accessory muscles and clear to auscultation bilaterally AUSCULTATION: clear to auscultation bilaterally Cardio: COMMON NORMALS: regular rate and regular rhythm RATE: regular rate RHYTHM: regular rhythm GI: COMMON NORMALS: Normal to inspection, nondistended, normoactive bowel sounds present Extremity: COMMON NORMALS: no pedal edema Neuro: JOSE DE JESUS COMA SCALE: document GCS findings [place] coma scale eye opening: Spontaneous [place] coma scale verbal response: Orientated [place] coma scale motor response: Obey commands Jose De Jesus coma scale total score: 15 S ENSORY EXAM: Yes extremities (intact) Psych: COMMON NORMALS: speech normal SPEECH: Yes normal speech Skin: COMMON NORMALS: no rashes or lesions noted GENERAL SKIN EXAM: no rashes or lesions noted Course 2 Vital Signs: Vital signs: Vital Signs Temperature 97.5 F L 06/03/25 22:20 Pulse Rate 69 06/04/25 03:11 Respiratory Rate 17 06/04/25 03:11 Blood Pressure 132/68 06/04/25 03:11 Pulse Oximetry 97 06/04/25 03:11 Oxygen Delivery Me thod Nasal Cannula 06/04/25 03:03 Oxygen Flow Rate 2 06/04/25 03:03 MDM - Chest Pain Medical Decision Making Patient appears mildly ill. His vitals are stable. He is initially hypertensive, although this is improved to some degree on its own. Exam is mildly concerning given his ominous, poorly localized pain. CBC is normal. BMP is normal. D-dimer however was 10. CT of the chest abdomen pelvis was ordered. It shows a dissection from the aortic root through the iliacs bilaterally. We do not have vascular surgery or chest surgery availability at this facility. We have a call out to [facility] in [place]. Will start a labetalol drip to tightly control blood pressure and heart rate, although his heart rate is around 70 currently. Lab Data 06/03/25 23:42 06/03/25 23:42 Radiology Impressions Chest/Abdomen/Pelvis CTA 06/04/25 01:09 IMPRESSION: 1. 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 No pericardial effusion. 2. Mild extension of the dissection into the innominate. 3. Symmetric perfusion to the common femorals. 4. The true lumen is very small and perfuses the celiac, SMA, and CARIN. The false lumen perfuses the renal arteries. No renal infarct. 5. Vascular surgical evaluation recommended. ADDENDUM: 06/04/25 0157 COMMENT: THIS REPORT CONTAINS FINDINGS THAT MAY BE CRITICAL TO PATIENT CARE. The exam findings were verbally communicated by me to JUNG MEYER via telephone conference at 1:55 AM DIRECTOR OF SCIENCE on 06/04/2025. The findings were acknowledged and understood. Laboratory Results WBC 9.96 10^3/uL (3.29-11.43) 06/03/25 23:42 RBC 4.44 10^6/uL (3.85-5.65) 06/03/25 23:42 Hgb 14.10 g/dL (11.27-16.99) 06/03/25 23:42 Hct 40.4 % (37-53) 06/03/25 23:42 MCV 91.0 fl (82-101) 06/03/25 23:42 MCH 31.8 pg (27-33) 06/03/25 23:42 MCHC 34.9 g/dL (30-55) 06/03/25 23:42 RDW 12.3 % (12.1-15.1) 06/03/25 23:42 Plt Count 271 10^3/cmm (157-399) 06/03/25 23:42 MPV 8.7 fL (7.4-10.4) 06/03/25 23:42 Neut % (Auto) 81.1 % 06/03/25 23:42 Lymph % (Auto) 10.7 % 06/03/25 23:42 [place] % (Auto) 6.6 % 06/03/25 23:42 Eos % (Auto) 1.0 % 06/03/25 23:42 Baso % (Auto) 0.3 % 06/03/25 23:42 Neut # (Auto) 8.07 10^3/uL (1.8-7.7) H 06/03/25 23:42 Lymph # (Auto) 1.1 10^3/uL (0.8-4.8) 06/03/25 23:42 [place] # (Auto) 0.7 10^3/uL (0.2-0.9) 06/03/25 23:42 Eos # (Auto) 0.1 10^3/uL (0.0-0.8) 06/03/25 23:42 Baso # (Auto) 0.0 10^3/uL (0.0-0.1) 06/03/25 23:42 Nucleated RBC % (auto) 0 % 06/03/25 23:42 Nucleated RBCs # 0.0 /100WBC 06/03/25 23:42 D-Dimer 10.53 ug/mLFEU (0-0.59) H 06/03/25 23:42 Sodium 140 mmol/L (136-145) 06/03/25 23:42 Potassium 3.8 mmol/L (3.5-5.1) 06/03/25 23:42 Chloride 103 mmol/L (98-107) 06/03/25 23:42 Carbon Dioxide 26 mmol/L (22-29) 06/03/25 23:42 Anion Gap 14.8 (5-19) 06/03/25 23:42 BUN 16 mg/dL (6-20) 06/03/25 23:42 Creatinine 1.0 mg/dL (0.7-1.2) 06/03/25 23:42 GFR Calculation 80.1 mL/min (90-130) L 06/03/25 23:42 Glucose 90 mg/dL (65-115) 06/03/25 23:42 Calculated Osmolality 291 mOsm/kg (285-295) 06/03/25 23:42 Calcium 9.8 mg/dL (8.5-10.5) 06/03/25 23:42 Total Bilirubin 0.4 mg/dL (0.15-1.2) 06/03/25 23:42 AST 20 U/L (0-40) 06/03/25 23:42 ALT 22 U/L (0-41) 06/03/25 23:42 Alkaline Phosphatase 96 U/L (40-130) 06/03/25 23:42 Troponin T Baseline 12 ng/L (0-15) 06/03/25 23:42 Troponin T 120 Minute 11.18 ng/L (0-15) 06/04/25 01:15 Delta Troponin T -0.82 ABS# (0-10) L 06/04/25 01:15 NT-Pro-B Natriuret Pep 56 pg/mL (0-125) 06/03/25 23:42 Total Protein 6.9 g/dL (6.6-8.7) 06/03/25 23:42 Albumin 4.7 g/dL (3.5-5.2) 06/03/25 23:42 Globulin 2.2 g/dL (1.3-4.6) 06/03/25 23:42 Lipase 41 U/L (13-60) 06/03/25 23:42 Urine Color Yellow (Yellow) 06/04/25 00: Urine Appearance Clear (CLEAR) 06/04/25 00: Urine pH 6.5 (5-7) 06/04/25 00:29 Ur Specific [place] 1.026 (1.005-1.030) 06/04/25 00: Urine Protein Trace (Negative) A 06/04/25 00: Urine Glucose (UA) Negative (Normal) 06/04/25 00: Urine Ketones Trace (Negative) 06/04/25 00: Urine Blood Negative (Negative) 06/04/25 00: Urine Nitrate Negative (Negative) 06/04/25 00: Urine Bilirubin Negative (Negative) 06/04/25 00: Urine Urobilinogen 2.0 mg/dL (Negative) H 06/04/25 00:29 Ur Leukocyte Esterase Negative (Negative) 06/04/25 00: Urine RBC 0-2 /hpf (0-2) 06/04/25 00:29 Urine WBC 0-5 /hpf (0-5) 06/04/25 00:29 Ur Squamous Epith Cells 0-5 /hpf (0-5) 06/04/25 00: Amorphous Sediment Not Reportable 06/04/25 00: Urine Bacteria None seen /hpf (NONE) 06/04/25 00:29 Hyaline Casts 1.21 /lpf 06/04/25 00:29 All radiology interpretation(s) finalized by discharge Critical Care Time 2 Critical Care Time: Critical Care Time: Yes Total Critical Care Time: 40 Attestation: This case had a high probability of a clinically significant, sudden, or life threatening deterioration of this patient's condition which required my full and direct attention, intervention and personal management. Time is independent of any procedures performed. Discharge Plan Discharge Patient Disposition: Xfer Short-Term Hosp Clinical Impression: Aortic dissection, thoracoabdominal Condition: Serious Referrals: Carlita Gomez DO [Primary Care Provider, [facility]] Print Language: Yakut Coding Level of Care Code ED [facility] for Chg Fwd Heart Score HEART Score Components History: Slightly Suspicous EKG: Normal Age: 45-64 yrs Risk Factors: 1 or 2 Risk Factors Troponin: Baseline Trop <16 ng/L HEART Score RESULT HEART Score: 2
[2025-06-04 00:39] LABS: Glucose Urine UA Negative (Normal); Nitrate Urine Negative (Negative); Specific Gravity, Urine 1.026 (1.005-1.030)
[2025-06-04 00:44] LABS: Add Urine Microscopic? YES
[2025-06-04 00:54] LABS: Lipase 41 U/L (13-60)
[2025-06-04] MEDS: morphine 4 mg/mL SDV 1 mL IVP (00:57)
[2025-06-04] MEDS: ondansetron 2 mg/ML SDV 2 mL 4 MG IVP (00:57)
--- NOTE | 2025-06-04 01:09 | CTR_ITS ---
PROCEDURE INFORMATION: Exam: CTA Chest With Contrast CTA Abdomen and Pelvis With Contrast Exam date and time: 06/04/2025 1:20 AM Age: 49 years old Clinical indication: Pain and abnormal findings; Abnormal diagnostic tests; Elevated d-dimer; Chest pressure; Prior surgery; Surgery date: 6+ months; Surgery type: Appy. Bowel resection; C/O chest and back pain with dimer of 10.53 TECHNIQUE: Imaging protocol: Computed tomographic angiography of the chest with contrast. Exam focused on the arteries. Computed tomographic angiography of the abdomen and pelvis with contrast. Exam focused on the arteries. 3D rendering (Not supervised by radiologist): MIP and/or 3D reconstructed images were created by the technologist. Radiation optimization: All CT scans at this facility use at least one of these dose optimization techniques: automated exposure control; mA and/or kV adjustment per patient size (includes targeted exams where dose is matched to clinical indication); or iterative reconstruction. Contrast material: OMNI 350; Contrast volume: 100 ml; Contrast route: INTRAVENOUS (IV); COMPARISON: No relevant prior studies available. RADIATION DOSE METRICS: Total DLP (mGy-cm): 1417.05 FINDINGS: VASCULATURE: Pulmonary arteries: Normal. No pulmonary emboli. Aorta: [place] type a dissection which extends from the aortic root to the bilateral common iliac arteries. No pericardial effusion. Celiac and mesenteric arteries: The true lumen is very small and perfuses the celiac, SMA, and CARIN. The false lumen perfuses the renal arteries. No renal infarct. Renal arteries: See Celiac and mesenteric arteries finding. Right iliac arteries: No occlusion or significant stenosis. Left iliac arteries: No occlusion or significant stenosis. CHEST: Lungs: Unremarkable. No consolidation. No masses. Pleural spaces: Unremarkable. No pneumothorax. No pleural effusion. Heart: See Aorta finding. ABDOMEN AND PELVIS: Liver: No mass. Gallbladder and biliary ducts: Unremarkable. No calcified stones. No ductal dilation. Pancreas: Unremarkable. No mass. No ductal dilation. Spleen: Unremarkable. No splenomegaly. Adrenal glands: Unremarkable. No mass. Kidneys and ureters: See Celiac and mesenteric arteries finding. Stomach and bowel: Unremarkable. No obstruction. No mucosal thickening. Appendix: No evidence of appendicitis. Intraperitoneal space: Unremarkable. No free air. No significant fluid collection. Urinary bladder: Unremarkable. No mass. Reproductive: Unremarkable as visualized. Lymph nodes: Unremarkable. No enlarged lymph nodes. Bones/joints: Symmetric perfusion to the common femorals. Soft tissues: Unremarkable. Other findings: Mild extension of the dissection into the innominate. Vascular surgical evaluation recommended. CT/CT [facility] [id number] IMPRESSION: 1. 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 No pericardial effusion. 2. Mild extension of the dissection into the innominate. 3. Symmetric perfusion to the common femorals. 4. The true lumen is very small and perfuses the celiac, SMA, and CARIN. The false lumen perfuses the renal arteries. No renal infarct. 5. Vascular surgical evaluation recommended.
[2025-06-04] MEDS: iohexol 350 mg/mL 500 mL Btl (per mL) IV (01:21)
[2025-06-04 01:44] LABS: Troponin 5 2HR 11.18 ng/L (0-15)
[2025-06-04 01:45] LABS: Troponin 5 2HR Delta -0.82 ABS# (0-10)
--- NOTE | 2025-06-04 01:45 | ECG_ITS ---
[facility]: 2025-06-04 Pat Name: Filiberto Walsh Department: Room: Gender: Male Manager Inpatient: : 1975 Requested By: Jung Hoyos Order Number: [id number] Phoebe MD: Lino Márquez M.D. Measurements Intervals [place] Rate: 73 P: 54 [place]: 165 QRS: 29 QRSD: 93 T: 67 QT: 389 QTc: 429 Interpretive Statements SINUS RHYTHM NONSPECIFIC T-WAVE ABNORMALITY No previous ECG available for comparison Electronically Signed On 06-05-2025 21:01:17 CATALOGUE MAKER by Lino Márquez M.D. [id number]
== END 2025-06-04 03:00 | disposition short-term general hospital (02) ==
PROVIDERS: Emergency Provider Emergency Medicine; PCP Family Medicine
DX: I71.03 Dissection of thoracoabdominal aorta (principal)
CPT/HCPCS: 36415; 71275; 74174; 80048; 80053; 81001; 83690; 83880; 84484; 85025; 85378; 93005; 96365; 96375; 99285; 99291; J1885; J2270; J2405; J3490; J7030; J7050

== ENCOUNTER → 2025-06-22 12:01 | Outpatient (BNVA) | payer BC, MEDICAID, SELFPAY | PROVIDERS: PCP Family Medicine | DX: Z51.89 Encounter for other specified aftercare (principal) | CPT/HCPCS: 80053; 85025; 85610 ==

== ENCOUNTER → 2025-06-26 09:25 | Outpatient (BNVA) | payer BC, MEDICAID, SELFPAY | PROVIDERS: PCP Family Medicine; Visit Provider Family Medicine | DX: R79.1 Abnormal coagulation profile (principal) | CPT/HCPCS: 85610 ==

== ENCOUNTER 2025-07-02 09:46 | Outpatient (CLI) | payer BC, MEDICAID, SELFPAY ==
[2025-07-02 11:05] LABS: INR 1.31 (0.8-1.2); Prothrombin Time 17.20 SECONDS (12.1-14.9)
== END 2025-07-02 09:47 | disposition home or self-care (01) ==
LOC: LAB 09:48
PROVIDERS: PCP Family Medicine; Visit Provider Surgery
DX: Z95.4 Presence of other heart-valve replacement (principal)
CPT/HCPCS: 36415; 85610